=== PATIENT | female | born 1970 | race Caucasian/White ===

== ENCOUNTER 2021-09-19 17:28 | Emergency (ER) | payer MEDICAID ==
[~2021-09-19] VITALS: Ht 152.4 cm; Wt 94.1 kg
[~2021-09-19 17:28] MED LIST: BUSP10TA11 PO; CYCL-524 PO; DEXL60CA3 PO; DOCU250C96 PO; FURO-150 PO; LAMO100T2 PO; LORA1TAB PO; MULT-342 PO; NAPR-56 PO; NAPR-996 PO; POTA8TAB46 PO; ZOLP10TA5 PO; [UNRECOGNIZED DRUG - CODE] PO
[2021-09-19 17:34] VITALS: BP 139/65
== END 2021-09-20 01:32 | disposition left against medical advice (07) ==
LOC: ER 17:29
DX: G43.909 Migraine, unspecified, not intractable, without status migrainosus (principal); Z53.21 Procedure and treatment not carried out due to patient leaving prior to being seen by health care provider

== ENCOUNTER 2022-04-29 15:48 | Emergency (ER) | payer MEDICAID ==
[~2022-04-29] VITALS: Ht 152.4 cm; Wt 78.0 kg
[2022-04-29 15:56] VITALS: BP 131/54
[2022-04-29] MEDS ORDERED: CLIN150C2 PO (17:20)
[2022-04-29] MEDS ORDERED: NAPR-56 PO (17:20)
== END 2022-04-29 17:43 | disposition home or self-care (01) ==
LOC: ER 15:49
DX: K08.89 Other specified disorders of teeth and supporting structures (principal); G89.29 Other chronic pain; F41.9 Anxiety disorder, unspecified; F31.9 Bipolar disorder, unspecified; Z72.89 Other problems related to lifestyle; Z88.1 Allergy status to other antibiotic agents; Z79.899 Other long term (current) drug therapy
CPT/HCPCS: 99283

== ENCOUNTER 2023-04-06 20:02 | Emergency (ER) | payer MEDICAID ==
[~2023-04-06] VITALS: Ht 152.4 cm; Wt 84.1 kg
[2023-04-06 20:05] VITALS: BP 147/81
[2023-04-06] MEDS ORDERED: dexamethasone sod phosphate 10mg/ml inj PO STA (20:50)
== END 2023-04-06 21:08 | disposition home or self-care (01) ==
LOC: ER 20:02
DX: J02.9 Acute pharyngitis, unspecified (principal); F31.9 Bipolar disorder, unspecified; G89.29 Other chronic pain; Z88.1 Allergy status to other antibiotic agents; Z88.8 Allergy status to other drugs, medicaments and biological substances; Z79.899 Other long term (current) drug therapy; Z88.6 Allergy status to analgesic agent
CPT/HCPCS: 87077; 87081; 87880; 99283; J1100